=== PATIENT | female | born 1990 | race Caucasian/White ===

== ENCOUNTER 2018-10-23 06:40 | Inpatient (IN) | payer MEDICAID, OTHER ==
[~2018-10-23] VITALS: Ht 165.1 cm; Wt 108.0 kg
[2018-10-23] MEDS ORDERED: PREN-19 PO (07:09)
[2018-10-23 07:11] VITALS: BP 115/66; PULSE 101; RESP 18
--- NOTE | 2018-10-23 07:24 | TRIAGE ---
OB Triage Datetime Report Generated by CPN: 10/23/2018 07:24 Datetime: 10/23/2018 07:22 Time of Arrival: 10/23/2018 06:43 EGA: 39.6 Arrived By: Ambulatory Arrived From: Home Chief Complaint: PT. HERE FOR C/O SROM Movement: Present Contractions: Irregular Rupture of Membranes: Ruptured Vaginal Discharge: Present Recent Sexual Intercouse: Denies Abdominal Trauma: Not Applicable Patient Complaints: Contractions; Cramping; Back Pain Time Provider Notified: 10/23/2018 07:10 Provider Notified: YASHARPOUR Initial Plan: SVE/EFM Datetime: 10/23/2018 07:00 Stage of : OB Triage Maternal Assessment Level of Consciousness: Fully Conscious Headache: Denies Blurred Vision: No Nausea/Vomiting: Denies RUQ Epigastric Pain: Denies Facial Edema: None Labor Evaluation Monitor Mode: External Resting Tone [place]: Relaxed Heart Rate FHR Baseline Rate: 150 Monitor Mode: External US Pain Assessment Pain Scale: 7 Pain Presence: Intermittent Pain Type: Contraction; Pressure Pain Location: Abdomen; Perineum Vaginal Exam Dilatation (cms): 3.0 Effacement (%): 60 Station: -2 Exam By: Oral Bam Membrane Status: Ruptured Amniotic Fluid Color: Clear Amniotic Fluid Amount: Small Amniotic Fluid Odor: Normal Vaginal Bleeding: Scant Nitrazine: Positive Cervix, Consistency: Soft Cervix, Position: Posterior Presentation 'A': Cephalic
[2018-10-23] MEDS: LACTATED RINGER'S 1,000 ML IV SCH ×2 (07:55→10:49)
[2018-10-23] MEDS ORDERED: BUTORPHANOL 2 MG INJ IV PRN (08:00)
[2018-10-23] MEDS ORDERED: MISOPROSTOL 200 MCG TAB PR PRN ×2 (08:00→18:30)
[2018-10-23] MEDS ORDERED: LIDOCAINE 1% (MPF) 30 ML INJ INJ PRN (08:00)
[2018-10-23] MEDS ORDERED: OXYTOCIN 30 UNITS/LR 500 ML IV SCH ×2 (08:00)
[2018-10-23] MEDS ORDERED: AMPICILLIN 2 GM/NS (PMX) 100 ML IV ONE (08:00)
[2018-10-23] MEDS ORDERED: METHYLERGONOVINE 0.2 MG INJ IM PRN (08:00)
[2018-10-23] MEDS ORDERED: OXYTOCIN 30 UNITS/LR 500 ML IV PRN ×2 (08:00→18:30)
[2018-10-23] MEDS ORDERED: IBUPROFEN 600 MG TAB PO PRN (08:00)
[2018-10-23] MEDS ORDERED: CARBOPROST 250 MCG INJ IM PRN ×2 (08:00→18:30)
--- NOTE | 2018-10-23 10:37 | PREAC ---
Date/Time of Note Date/Time of Note DATE: 10/23/18 TIME: 10:37 Anesthesia Eval and Record Evaluation Time Pre-Procedure Interview DATE: 10/23/18 TIME: 10:37 Age 28 Sex female NPO: 8 hrs Preoperative diagnosis Planned procedure Labor Epidural Past Medical History Past Medical History: Includes GI: Morbid obesity Surgery & Anesthesia Issues No known issue Meds Anticoagulation: No Beta Ann within 24 hr: No Reason Beta Ann not given: Pt. not on B-Ann Reported Medications Vit #76/Iron,Carb/FA (Prenatabs Rx Tablet) 1 Each Tablet, 1 EACH PO DAILY, TAB 10/23/18 Current Medications Lactated Ringer's 1,000 ml @ 125 mls/hr Q8H IV Last administered on 10/23/18at 07:55; Admin Dose 125 MLS/HR; Start 10/23/18 at 07:31 Ampicillin 50 ml @ 100 mls/hr Q4H IV ; Start 10/23/18 at 12:00 Butorphanol Tartrate (Stadol) 2 mg Q2H PRN IV PAIN; Start 10/23/18 at 08:00 Lidocaine (Xylocaine 1% (Mpf)) 30 ml ONCE PRN INJ EPISIOTOMY; Start 10/23/18 at 08:00 Oxytocin/Lactated Ringer's 500 ml @ 500 mls/hr ONCE POST IV ; Start 10/23/18 at 08:00 Oxytocin/Lactated Ringer's 500 ml @ 125 mls/hr POST IV ; Start 10/23/18 at 08:00 Ibuprofen (Motrin) 600 mg ONCE PRN PO PAIN LEVEL 1-5; Start 10/23/18 at 08:00 Oxytocin/Lactated Ringer's 500 ml @ 0 mls/hr ONCE PRN IV VAGINAL BLEEDING; Start 10/23/18 at 08:00 Methylergonovine Maleate (Methergine) 0.2 mg ONCE PRN IM VAGINAL BLEEDING; Start 10/23/18 at 08:00 Carboprost Tromethamine (Hemabate) 250 mcg ONCE PRN IM VAGINAL BLEEDING; Start 10/23/18 at 08:00 Misoprostol (Cytotec) 1,000 mcg ONCE PRN VA VAGINAL BLEEDING; Start 10/23/18 at 08:00 Oxytocin/Lactated Ringer's 500 ml @ 0 mls/hr FOR AUGMENTATION IV Last administered on 10/23/18at 08:26; Admin Dose 2 MLS/HR; Start 10/23/18 at 08:00 Meds reviewed: Yes Allergies Coded Allergies: No Known Drug Allergy (Verified Allergy, Mild, 10/23/18) Allergies Reviewed: Yes Labs/Studies Labs Reviewed: Reviewed by anesthesiologist Result Diagram: 10/23/18 0730 Laboratory Tests 10/23/18 07:30 Blood Bank Test 10/23/18 07:30 Antibody Screen NEGATIVE Blood Type A POSITIVE Rh Immune Globulin Candidate NO test: Positive Pre-procedure Exam Last vitals Vital Signs Date Temp Pulse Resp B/P (MAP) Pulse Ox O2 O2 Flow FiO2 Time Delivery Rate 10/23/18 97.9 101 18 115/66 Room Air 07:11 (82) Airway: Adequate mouth opening, Adequate thyromental dist Mallampati: Mallampati II Teeth: Normal Lung: Normal Heart: Normal ASA Physical Status ASA physical status: 2 Emergency: None Planned Anesthetic Neuraxial: Epidural Pre-operative Attestations Prior to commencing anesthesia and surgery, the patient was re-evaluated, there was verification of: *The patient's identity *The results of appropriate recent lab work and preoperative vital signs *The above evaluation not changing prior to induction *Anesthetic plan, risk benefits, alternative and complications discussed with patient/family; questions answered; patient/family understands, accepts and wishes to proceed. MANI CASEY Oct 23, 2018 10:37
[2018-10-23] MEDS ORDERED: FENTAnyl 2MCG/ML-ROPIV 0.2% 100 ML ONE (10:57)
[2018-10-23] MEDS ORDERED: ONDANSETRON 4 MG INJ IV PRN ×2 (11:00→18:30)
[2018-10-23] MEDS ORDERED: NALOXONE (0.4 MG/ML) INJ IV PRN (11:00)
[2018-10-23] MEDS ORDERED: FENTAnyl 2MCG/ML-ROPIV 0.2% 100 ML BAG EPI SCH (11:00)
[2018-10-23] MEDS ORDERED: HYDROmorphONE 0.5 MG/0.5 ML SYG IV PRN ×2 (11:00)
[2018-10-23] MEDS ORDERED: DIPHENHYDRAMINE 50 MG INJ IV PRN ×2 (11:00→18:30)
[2018-10-23] MEDS ORDERED: KETOROLAC 30 MG INJ IV PRN (11:00)
--- NOTE | 2018-10-23 11:03 | PAC ---
Date/Time of Note Date/Time of Note DATE: 10/23/18 TIME: 11:03 Post-Anesthesia Notes Post-Anesthesia Note Last documented vital signs Vital Signs Date Temp Pulse Resp B/P (MAP) Pulse Ox O2 O2 Flow FiO2 Time Delivery Rate 10/23/18 97.9 101 18 115/66 Room Air 07:11 (82) Activity: WNL Respiratory function: WNL Cardiovascular function: WNL Mental status: Baseline Pain reasonably controlled: Yes Hydration appropriate: Yes Nausea/Vomiting absent: Yes MANI CASEY Oct 23, 2018 11:03
[2018-10-23] MEDS ORDERED: AMPICILLIN 1 GM/NS (PMX) 50 ML IV SCH (12:00)
--- NOTE | 2018-10-23 18:17 | HP ---
Date/Time of Note Date/Time of Note DATE: 10/23/18 TIME: 18:16 OB - History Hx of Present Free Text/Dictation 28 YO with IUP at 39.6 weeks who was admitted in labor. she had h/o 10+ LB babies without h/o shoulder dystocia. Care: Good Care Ultrasounds: Normal mid trimester US Obstetrical Complications: None Medical Complications: None Past Family/Social History * Past Medical, Surgical, Family and Obstetric Histories reviewed from chart. OB Admission Exam Vital Signs Vital Signs Vital Signs Date Temp Pulse Resp B/P (MAP) Pulse Ox O2 O2 Flow FiO2 Time Delivery Rate 10/23/18 97.9 101 18 115/66 Room Air 07:11 (82) Physical Exam HEENT: WNL Heart: Rhythm Normal Lungs: Clear, Equal Abdomen: WNL Extremities: Normal Reflexes: Normal Last 72 hours Lab Results CBC & BMP 10/23/18 07:30 OB Assessment/Plan Reason for admission: active labor Plan: Expectant Management Induction Method: per Pitocin Protocol ELSIE GUEVARA MD Oct 23, 2018 18:17
--- NOTE | 2018-10-23 18:19 | LDN ---
Date/Time of Note Date/Time of Note DATE: 10/23/18 TIME: 18:17 Delivery Summary 28 YO with IUP at 39.6 weeks. s/p of viable female intact over intact perineum. placenta delivered spontaneously and intact. Meconium: none Episiotomy: No Perineal laceration: 0 Anesthesia type: Epidural Estimated blood loss: 300 Sponge & Needle done & correct: Yes All needle counts correct: Yes Any foreign bodies felt in the: No Infant Delivery Information Sex Infant Sex: male Apgars 1 Minute: 9 5 Minute: 9 Suctioning Nose & mouth suctioned at phill: No Delee suction performed: No Umbilical Cord Umbilical cord with: 3 Vessels Cord presentations: no nuchal cord Cord Blood was obtained: Yes Mother & Baby Disposition Disposition Mom & Baby to Maternity; Good: Yes ELSIE GUEVARA MD Oct 23, 2018 18:19
[2018-10-23] MEDS: OXYTOCIN 30 UNITS/LR 500 ML IV SCH ×2 (18:26→21:59)
[2018-10-23] MEDS ORDERED: BENZOCAINE 20% 56 ML SPRAY TOP PRN (18:30)
[2018-10-23] MEDS ORDERED: ONDANSETRON 4 MG TAB PO PRN (18:30)
[2018-10-23] MEDS ORDERED: MAGNESIUM HYDROXIDE 30ML CUP PO PRN (18:30)
[2018-10-23] MEDS ORDERED: DIPHENHYDRAMINE 25 MG CAP PO PRN (18:30)
[2018-10-23] MEDS ORDERED: HYDROCODONE/APAP (5/325) TAB PO PRN (18:30)
[2018-10-23] MEDS ORDERED: SENNA/DOCUSATE NA (8.6MG/50MG) TAB PO PRN (18:30)
[2018-10-23] MEDS ORDERED: LANOLIN HPA 1 PKT TOP PRN (18:30)
[2018-10-23] MEDS ORDERED: NA PHOSPHATE/BIPHOS 133 ML ENEMA PR PRN (18:30)
[2018-10-23] MEDS ORDERED: DIBUCAINE 1% 30 GM OINT TOP PRN (18:30)
[2018-10-23] MEDS ORDERED: WITCH HAZEL/GLYCERIN PAD PR PRN (18:30)
[2018-10-23 20:40] VITALS: BP 107/57; PULSE 96; RESP 18
[2018-10-23] MEDS: SENNA/DOCUSATE NA (8.6MG/50MG) TAB PO SCH (21:14)
[2018-10-24] MEDS: IBUPROFEN 600 MG TAB PO SCH ×5 (00:19→23:39)
[2018-10-24] MEDS: LACTATED RINGER'S 1,000 ML IV* SCH ×3 (01:40→10:15)
[2018-10-24] MEDS: HYDROCODONE/APAP (5/325) TAB PO PRN ×2 (03:42→09:04)
[2018-10-24 04:52] VITALS: BP 109/64; PULSE 83; RESP 18
[2018-10-24 09:04] VITALS: BP 122/68; PULSE 85; RESP 18
[2018-10-24] MEDS: SENNA/DOCUSATE NA (8.6MG/50MG) TAB PO SCH ×2 (09:04→21:50)
[2018-10-24 11:51] VITALS: BP 108/72; PULSE 86; RESP 18
--- NOTE | 2018-10-24 13:57 | DS ---
Date/Time of Note Date/Time of Note DATE: 10/24/18 TIME: 13:57 Obstetrical Discharge Record Final Diagnosis Final Diagnosis: Term delivered Vaginal Delivery Obstetrical Delivery: Spontaneous Complications Augmentation: Yes Rupture of Membranes: No Condition on Discharge Physical Assessment Voiding: Yes Bowel Movement: Yes Breast: Soft, non-tender, Filling Fundus: Firm Abdomen and Incision: soft, not tender Calf Tenderness: No Patient Condition: Good ELSIE GUEVARA MD Oct 24, 2018 13:57
[2018-10-24 15:50] VITALS: BP 110/64; PULSE 87; RESP 18
[2018-10-24 20:00] VITALS: BP 108/71; PULSE 85
[2018-10-25 04:43] VITALS: BP 112/77; PULSE 82; RESP 20
[2018-10-25] MEDS: IBUPROFEN 600 MG TAB PO SCH (05:33)
[2018-10-25 07:45] VITALS: BP 103/61; PULSE 77; RESP 16
[2018-10-25] MEDS ORDERED: VARICELLA VACCINE LIVE/PF 1,350 UNIT/0.5 ML ML SC* ONE (09:00)
[2018-10-25] MEDS ORDERED: DIPHTH/TET/ACEL PERTUSS (ADULT) 0.5 ML VIAL IM* ONE (09:00)
[2018-10-25] MEDS ORDERED: MEASLES,MUMPS,RUBELLA VACCINE INJ SC* ONE (09:00)
[2018-10-25] MEDS: SENNA/DOCUSATE NA (8.6MG/50MG) TAB PO SCH (09:16)
[2018-10-25] MEDS: HYDROCODONE/APAP (5/325) TAB PO PRN (09:16)
== END 2018-10-25 12:53 | disposition home or self-care (01) | DRG 807 ==
LOC: OBT 06:40 → L-D 06:40 → OBT 07:10 → PP1 20:40
PROVIDERS: ADMIT Specialist; ATTEND Specialist
PROC: 10E0XZZ Delivery of Products of Conception, External Approach (ICD-10-PCS; principal; 2018-10-23)
DX: O80 Encounter for full-term uncomplicated delivery (principal); Z37.0 Single live birth; Z3A.39 39 weeks gestation of pregnancy
CPT/HCPCS: 62319; 76815; 85025; 85610; 85730; 86592; 86850; 86900; 86901; 99464; G0463; J0290; J2590; J3010; J7120